=== PATIENT | female | born 1955 | race Caucasian/White ===

== ENCOUNTER → 2016-08-06 | Outpatient (CLI) | payer BC, MEDICAID ==
[~2016-08-06] MED LIST: AMBIEN 10MG10 MG PO; CIPRO 500MG TA500 MG PO; CLARITIN 1010 MG/TAB PO; DEPAKOTE ER 50500 MG PO; DYRENIUM 50MG C50 MG PO; JANUMET 500 MG-1 TA1 PO; KLONOPIN 0.5MG0.5 MG PO; LAMICTAL 100MG100 MG PO; LIPITOR20 MG PO; MACROBID 1100 MG/CAP PO; MAXZIDE-25MG TA1 TAB PO; NEFAZODONE100 MG PO; NORCO 325 MG-51 TAB PO; OMEGA 31000 MG PO; OMNICEF 300MG300 MG PO; PAMELOR50 MG PO; PRAVACHOL 40MG40 MG PO; PRINIVIL20 MG PO; SINGULAIR 110 MG/TAB PO; SKELAXIN 800MG800 MG PO; STRESS B COMPLE PO; ZOFRAN 4MG T4 MG/TAB PO
== END ==
LOC: BHSO 09:46
DX: F31.74 Bipolar disorder, in full remission, most recent episode manic (principal)

== ENCOUNTER → 2016-11-01 | Emergency (ER) | payer BC, MEDICAID ==
[~2016-11-01] VITALS: Ht 160 cm; Wt 77.3 kg
[2016-11-01 08:36] VITALS: TEMP 97.9
[2016-11-01 09:35] LABS: ADJUSTED CALCIUM 8.9 mg/dL (8.4-10.2); ALANINE AMINOTRANSFERASE 21 U/L (9-52); ALKALINE PHOSPHATASE 68 U/L (50-136); ANION GAP 14 mmol/L (7-16); BASO % 0.3 % (0.0-2.0); BILIRUBIN,TOTAL 0.6 mg/dL (0.0-1.0); BLOOD UREA NITROGEN 28 mg/dL (7-17); CALCIUM 8.9 mg/dL (8.4-10.2); CARBON DIOXIDE 23 mmol/L (22-30); CHLORIDE 91 mmol/L (98-107); CREATININE, serum 2.08 mg/dL (0.52-1.25); EOS # 0.1 (0.0-0.7); EOS % 1.6 % (0-4.0); GLUCOSE 166 mg/dL (74-106); GRAN # 3.9 (1.4-6.5); GRAN % 57.2 % (42.2-75.2); LYMPH # 2.2 (1.2-3.4); LYMPH % 31.8 % (20.0-51.0); MEAN CELL VOLUME 94 fl (80.0-100.0); MEAN CORPUSCULAR HGB CONC 34 g/dl (33.0-37.0); MEAN PLATELET VOLUME 8.9 fl (7.4-10.4); MONO # 0.6 (0.1-0.6); MONO % 8.5 % (1.7-9.3); PLATELET COUNT 240 K/mm3 (130-400); POTASSIUM 3.3 mmol/L (3.4-5.0); RED BLOOD COUNT 3.71 M/mm3 (4.10-5.30); REDCELL DISTRIBUTION WIDTH-CV 13.2 % (11.5-14.5); SODIUM 128 mmol/L (137-145); TOTAL PROTEIN 6.6 gm/dL (6.4-8.2); WHITE BLOOD COUNT 6.8 K/mm3 (4.8-10.8)
[2016-11-01 09:37] LABS: HEMATOCRIT 34.8 % (37.0-47.0); HEMOGLOBIN 11.9 g/dl (12.5-16.0); MEAN CORPUSCULAR HEMOGLOBIN 32 pg (27.0-31.0)
[2016-11-01 09:50] LABS: C-REACTIVE PROTEIN < 0.5 mg/dL (0.0-0.9); TROPONIN-I < 0.012 ng/mL (0.000-0.034)
[2016-11-01 11:16] VITALS: BP 102/64; PULSE 89
[2016-11-01 11:45] LABS: PH 5 (5-8); SQUAMOUS EPITHELIAL 0-2 /hpf; URINE APPEARANCE Clear; URINE BACTERIA Rare /hpf; URINE BILIRUBIN Negative (NEGATIVE); URINE BLOOD 2+ (NEGATIVE); URINE COLOR Yellow; URINE GLUCOSE 3+ (NEGATIVE); URINE KETONE Trace (NEGATIVE); URINE UROBILINOGEN Negative (NEGATIVE)
== END | disposition home or self-care (01) ==
LOC: COL.ER 08:33
PROVIDERS: Family Medicine
DX: I95.9 Hypotension, unspecified (principal); E86.0 Dehydration; E11.9 Type 2 diabetes mellitus without complications; I10 Essential (primary) hypertension; F31.9 Bipolar disorder, unspecified; Z85.3 Personal history of malignant neoplasm of breast; Z79.84 Long term (current) use of oral hypoglycemic drugs
CPT/HCPCS: J7030

== ENCOUNTER → 2017-02-04 | Outpatient (CLI) | payer MEDICARE | LOC: BHSO 09:18 | DX: F31.73 Bipolar disorder, in partial remission, most recent episode manic (principal) ==

== ENCOUNTER → 2017-09-27 | Outpatient (CLI) | payer MEDICARE | LOC: BHSO 09:55 | DX: F31.81 Bipolar II disorder (principal) | CPT/HCPCS: G0463 ==

== ENCOUNTER → 2018-03-28 | Outpatient (CLI) | payer MEDICARE | LOC: BHSO 08:54 | DX: F31.81 Bipolar II disorder (principal) | CPT/HCPCS: G0463 ==

== ENCOUNTER → 2018-05-20 | Outpatient (CLI) | payer MEDICARE | LOC: COL.RAD 09:57 | DX: R74.8 Abnormal levels of other serum enzymes (principal) ==

== ENCOUNTER 2018-06-02 02:02 | Emergency (ER) | payer MEDICARE ==
[~2018-06-02] VITALS: Ht 162.6 cm; Wt 63.6 kg
[2018-06-02 02:04] VITALS: TEMP 98
[2018-06-02] MEDS ORDERED: LAMICTAL150 MG PO (02:26)
[2018-06-02 02:45] LABS: MEAN CELL VOLUME 104 fl (80.0-100.0); MEAN CORPUSCULAR HGB CONC 31 g/dl (33.0-37.0); MEAN PLATELET VOLUME 8.9 fl (7.4-10.4); PLATELET COUNT 166 K/mm3 (130-400); REDCELL DISTRIBUTION WIDTH-CV 17.5 % (11.5-14.5)
[2018-06-02 02:46] LABS: HEMATOCRIT 22.9 % (37.0-47.0); MEAN CORPUSCULAR HEMOGLOBIN 32 pg (27.0-31.0)
[2018-06-02 02:50] LABS: INR 1.1 (0.8-3.0); PROTHROMBIN TIME 12.5 SECONDS (9.7-12.8)
[2018-06-02 02:56] LABS: ALANINE AMINOTRANSFERASE 12 U/L (9-52); ALKALINE PHOSPHATASE 247 U/L (50-136); ANION GAP 8 mmol/L (7-16); AST,SGOT 50 U/L (15-37); BILIRUBIN,TOTAL 0.3 mg/dL (0.0-1.0); BLOOD UREA NITROGEN 9 mg/dL (7-17); CALCIUM 9.5 mg/dL (8.4-10.2); CARBON DIOXIDE 26 mmol/L (22-30); CHLORIDE 104 mmol/L (98-107); CREATININE, serum 0.88 mg/dL (0.52-1.25); GLUCOSE 183 mg/dL (74-106); POTASSIUM 4.7 mmol/L (3.4-5.0); SODIUM 138 mmol/L (137-145); TOTAL PROTEIN 7.4 gm/dL (6.4-8.2)
[2018-06-02 03:11] LABS: TROPONIN-I < 0.012 ng/mL (0.000-0.034)
[2018-06-02 03:31] LABS: BAND 8 % (0-10); EOSINOPHIL 11 % (0-4); LYMPHOCYTE 27 % (20.0-51.0); NEUTROPHILS 43 % (42.0-75.2); PLATELET ESTIMATE NORMAL (NORMAL)
[2018-06-02 03:33] LABS: ANISOCYTOSIS 1+; TOXIC GRANULATION PRESENT
[2018-06-02 03:34] LABS: OVALOCYTES 1+
[2018-06-02 03:58] LABS: HEMATOCRIT 22.2 % (37.0-47.0)
[2018-06-02 06:12] LABS: COLLECTION METHOD CLEAN CATCH
[2018-06-02 06:21] LABS: PH 6 (5-8); SQUAMOUS EPITHELIAL 0-2 /hpf; URINE APPEARANCE Clear; URINE BACTERIA None Seen /hpf; URINE BILIRUBIN Negative (NEGATIVE); URINE BLOOD Negative (NEGATIVE); URINE COLOR Straw; URINE GLUCOSE Negative (NEGATIVE); URINE KETONE Negative (NEGATIVE); URINE LEUKOCYTE ESTERASE 2+ (NEGATIVE); URINE NITRATE Negative (NEGATIVE); URINE PROTEIN(semi-quant) Negative (NEGATIVE); URINE RBC 0-2 /hpf; URINE UROBILINOGEN Negative (NEGATIVE)
[2018-06-02 07:35] VITALS: BP 111/47; PULSE 86
== END 2018-06-02 07:37 | disposition short-term general hospital (02) ==
LOC: COL.ER 02:02 → JCC 04:09 → COL.ER 07:37
PROVIDERS: Emergency Medicine
DX: S06.5X9A Traumatic subdural hemorrhage with loss of consciousness of unspecified duration, initial encounter (principal); D64.9 Anemia, unspecified; W19.XXXA Unspecified fall, initial encounter; W22.8XXA Striking against or struck by other objects, initial encounter; Y92.009 Unspecified place in unspecified non-institutional (private) residence as the place of occurrence of the external cause

== ENCOUNTER → 2018-06-27 | Outpatient (CLI) | payer MEDICARE ==
[2018-06-27] VITALS (15 sets, daily range): BP systolic 102–130; BP diastolic 50–74; PULSE 77–93
[~2018-06-27] VITALS: Ht 162.6 cm; Wt 61.0 kg
[~2018-06-27] MED LIST changes: +GLUCOPHAGE500 MG/TAB PO; +LAMICTAL150 MG PO; +PREDNISONE20 MG PO; +VICTOZA6 MG/ML SQ
--- NOTE | 2018-06-27 14:50 | NUR ---
PT ON THE TABEL. MONITORING EQUIPMENT PLACED ON PT. SCANS DONE MD CONTACTED.
--- NOTE | 2018-06-27 15:00 | NUR ---
AWAITING . PT COMFORTABLE. VSS
--- NOTE | 2018-06-27 15:05 | NUR ---
PT RESTING EASILY. WAITING ON MD
--- NOTE | 2018-06-27 15:10 | NUR ---
PT DOING WELL
--- NOTE | 2018-06-27 15:15 | NUR ---
PT TOLERATING PROCEDURE WELL
--- NOTE | 2018-06-27 15:20 | NUR ---
PT DOING WELL. NO PAIN OR NEEDS VOICED.
--- NOTE | 2018-06-27 15:25 | NUR ---
PT TOLERATING WELL. DENIES PAIN
--- NOTE | 2018-06-27 15:30 | NUR ---
PT DENIES PAIN OR NEEDS. VSS.
--- NOTE | 2018-06-27 15:35 | NUR ---
SAMPLE OBTAINED AND PLACED IN FORMALIN. MONITORING EQUIPMENT RREMOVED. PT ASSISTED INTO CHAIR
--- NOTE | 2018-06-27 16:39 | NUR ---
PT TAKEN TO POV IN WHEELCHAIR
== END ==
LOC: COL.RAD 06-21 13:30
DX: C79.51 Secondary malignant neoplasm of bone (principal); Z92.21 Personal history of antineoplastic chemotherapy

== ENCOUNTER → 2018-07-13 | Outpatient (CLI) | payer MEDICARE ==
[~2018-07-13] MED LIST changes: +DEPAKOTE 125MG125 M1 PO; +FERRO-TIME325 MG PO; +LAMICTAL 25MG T25 MG PO; +NOVOLOG MIX 70/33 ML SQ; +PAMELOR 10MG10 MG PO; +PEPCID 20MG TAB20 MG PO
== END ==
LOC: COL.RAD 08:45
DX: C50.411 Malignant neoplasm of upper-outer quadrant of right female breast (principal); C78.01 Secondary malignant neoplasm of right lung; C78.02 Secondary malignant neoplasm of left lung; C79.31 Secondary malignant neoplasm of brain; C79.51 Secondary malignant neoplasm of bone; Z95.828 Presence of other vascular implants and grafts
CPT/HCPCS: Q9967

== ENCOUNTER 2018-07-16 01:25 | Emergency (ER) | payer MEDICARE ==
[~2018-07-16] VITALS: Ht 167.6 cm; Wt 63.6 kg
[~2018-07-16 01:25] MED LIST changes: -DEPAKOTE 125MG125 M1 PO; -FERRO-TIME325 MG PO; -LAMICTAL 25MG T25 MG PO; -NOVOLOG MIX 70/33 ML SQ; -PAMELOR 10MG10 MG PO; -PEPCID 20MG TAB20 MG PO
[2018-07-16 02:09] LABS: HEMATOCRIT 39.6 % (37.0-47.0); HEMOGLOBIN 13.1 g/dl (12.5-16.0); MEAN CELL VOLUME 98 fl (80.0-100.0); MEAN CORPUSCULAR HEMOGLOBIN 32 pg (27.0-31.0); MEAN CORPUSCULAR HGB CONC 33 g/dl (33.0-37.0); MEAN PLATELET VOLUME 10.2 fl (7.4-10.4); PLATELET COUNT 208 K/mm3 (130-400); RED BLOOD COUNT 4.06 M/mm3 (4.10-5.30); REDCELL DISTRIBUTION WIDTH-CV 18.3 % (11.5-14.5)
[2018-07-16 02:20] LABS: ALANINE AMINOTRANSFERASE 27 U/L (9-52); ALBUMIN 4.3 gm/dL (3.5-5.0); ALKALINE PHOSPHATASE 223 U/L (50-136); ANION GAP 17 mmol/L (7-16); AST,SGOT 32 U/L (15-37); BILIRUBIN,TOTAL 0.5 mg/dL (0.0-1.0); BLOOD UREA NITROGEN 18 mg/dL (7-17); CALCIUM 8.2 mg/dL (8.4-10.2); CARBON DIOXIDE 18 mmol/L (22-30); CHLORIDE 112 mmol/L (98-107); CREATININE, serum 1.41 mg/dL (0.52-1.25); LIPASE 492 U/L (23-300); POTASSIUM 5.4 mmol/L (3.4-5.0); SODIUM 147 mmol/L (137-145); TOTAL PROTEIN 7.7 gm/dL (6.4-8.2)
[2018-07-16 02:22] LABS: ACETAMINOPHEN < 10 ug/mL (10-30); SALICYLATE < 1.0 mg/dL
[2018-07-16 02:32] LABS: TROPONIN-I < 0.012 ng/mL (0.000-0.035)
[2018-07-16 02:37] LABS: BAND 9 % (0-10); LYMPHOCYTE 20 % (20.0-51.0); METAMYELOCYTE 1 % (0-0); MYELOCYTE 4 % (0-0); NEUTROPHILS 63 % (42.0-75.2); NUCLEATED RED BLOOD CELL 19 (0-6)
[2018-07-16 02:41] LABS: GLUCOSE 993 mg/dL (74-106)
[2018-07-16 02:43] LABS: ANISOCYTOSIS 2+; PLATELET ESTIMATE NORMAL (NORMAL); TEAR DROP CELLS 1+
[2018-07-16 02:44] LABS: SCHISTOCYTES 1+
[2018-07-16 02:59] LABS: ACETONE,SERUM NEGATIVE
[2018-07-16 04:02] LABS: COLLECTION METHOD CLEAN CATCH
[2018-07-16 04:12] LABS: MUCOUS Present /lpf; PH 5 (5-8); SQUAMOUS EPITHELIAL None Seen /hpf; URINE APPEARANCE Clear; URINE BACTERIA None Seen /hpf; URINE BILIRUBIN Negative (NEGATIVE); URINE BLOOD 2+ (NEGATIVE); URINE COLOR Yellow; URINE GLUCOSE 3+ (NEGATIVE); URINE KETONE Negative (NEGATIVE); URINE LEUKOCYTE ESTERASE Negative (NEGATIVE); URINE NITRATE Negative (NEGATIVE); URINE PROTEIN(semi-quant) Negative (NEGATIVE); URINE RBC 0-2 /hpf; URINE UROBILINOGEN Negative (NEGATIVE)
[2018-07-16 04:40] VITALS: BP 154/93; PULSE 128; TEMP 100.6
[2018-07-16] MEDS ORDERED: DEPAKOTE 125MG125 M1 PO (05:34)
[2018-07-16] MEDS ORDERED: PEPCID 20MG TAB20 MG PO (05:35)
[2018-07-16] MEDS ORDERED: FERRO-TIME325 MG PO (05:35)
[2018-07-16] MEDS ORDERED: NOVOLOG MIX 70/33 ML SQ (05:36)
[2018-07-16] MEDS ORDERED: PAMELOR 10MG10 MG PO (05:37)
[2018-07-16] MEDS ORDERED: LAMICTAL 25MG T25 MG PO (05:37)
[2018-07-16] MEDS ORDERED: JANUMET 500 MG-1 TA1 PO (05:37)
[2018-07-16] MEDS ORDERED: SINGULAIR 110 MG/TAB PO (05:38)
[2018-07-16] MEDS ORDERED: VICTOZA6 MG/ML SQ (05:40)
[2018-07-16 14:49] LABS: PATHOLOGY DIFF REVIEW OK
== END 2018-07-16 05:05 | disposition short-term general hospital (02) ==
LOC: COL.ER 01:25
PROVIDERS: Emergency Medicine
DX: S06.5X9A Traumatic subdural hemorrhage with loss of consciousness of unspecified duration, initial encounter (principal); E11.10 Type 2 diabetes mellitus with ketoacidosis without coma; E11.65 Type 2 diabetes mellitus with hyperglycemia; F31.9 Bipolar disorder, unspecified; I10 Essential (primary) hypertension; E78.5 Hyperlipidemia, unspecified; C50.919 Malignant neoplasm of unspecified site of unspecified female breast; C79.31 Secondary malignant neoplasm of brain; C79.51 Secondary malignant neoplasm of bone; R56.9 Unspecified convulsions; Z79.84 Long term (current) use of oral hypoglycemic drugs; W19.XXXA Unspecified fall, initial encounter
CPT/HCPCS: J0692; J1100; J1815; J1953; J2060; J2405; J2704; J7030